=== PATIENT | female | born 1995 | race Caucasian/White ===

== ENCOUNTER 2021-07-05 15:08 | Outpatient (CLI) | payer OTHER | END 2021-07-05 16:44 | disposition home or self-care (01) | LOC: GENOP 15:08 | PROVIDERS: Obstetrics & Gynecology | DX: O47.1 False labor at or after 37 completed weeks of gestation (principal); Z3A.36 36 weeks gestation of pregnancy | CPT/HCPCS: 59025; 80307; 81001 ==